=== PATIENT | male | born 1935 | race Caucasian/White ===

== ENCOUNTER 2017-10-12 23:29 | Emergency (ER) | payer MEDICARE, OTHER ==
[~2017-10-12] VITALS: Ht 185.4 cm; Wt 105.7 kg
[2017-10-12 23:33] VITALS: TEMP 36.4; Ht 185.4 cm; Wt 105.7 kg
[2017-10-12] MEDS ORDERED: LIDOCAINE 4% W/AFRIN NASAL SOLN 4ML EXT STA (23:46)
--- NOTE | 2017-10-12 23:54 | EMERGENCY ROOM VISIT NOTE ---
History Report prepared by Bal: Mojgan Colon Under the Supervision of: Dr. Michael Ospina M.D. First contact with patient: 23:36 Chief Complaint: NOSE BLEED (MINOR) Stated Complaint: NOSE BLEED History of Present Illness The patient is a 81 year old male who presents to the Emergency Room with complaints of a persistent nose bleed that started 12 hours ago. The patient was seen at [place] [facility] for the nose bleed and had a rhino rocket put in but states the bleeding has not stopped. The physician told the patient to come to [facility] because he needs to see an ENT doctor. The patient states the blood is dripping into his throat. He was not put on antibiotics and he did not have labs drawn in [place]. The patient has been on Eliquis for 3 weeks for an irregular heart beat. He reports he was put on a fluid pill due to his ankles being swollen. He denies urinary symptoms or melena. Source of History: patient Onset: 12 hours ago Position: nose Quality: other (bleeding) Timing: other (persistent) Associated Symptoms: No melena, No urinary symptoms Review of Systems See HPI for pertinent positives & negatives. A total of 10 systems reviewed and were otherwise negative. Past Medical & Surgical Medical Problems: (1) Hypertension Family History Hypertension Social History Smoking Status: Former Smoker Current/Historical Medications Scheduled Apixaban (Eliquis), Unknown Dose PO BID Aspirin (Aspirin Ec), 81 MG PO DAILY Cephalexin Monohydrate (Keflex), 500 MG PO TID Esomeprazole Magnesium (Nexium), Unknown Dose PO DAILY Furosemide (Lasix), Unknown Dose PO DAILY Losartan Potassium (Cozaar), 25 MG PO BID [cholesterol med], 1 DOSE PO QPM Allergies Coded Allergies: No Known Allergies (Verified , 10/13/17) Physical Exam Vital Signs Date Time Temp Pulse Resp B/P (MAP) Pulse Ox O2 Delivery O2 Flow Rate FiO2 10/13/17 01:33 69 18 149/90 93 10/12/17 23:33 36.4 86 18 160/104 99 Room Air Physical Exam GENERAL: Patient is chronically unwell appearing and in no acute distress. EYES: No scleral icterus, unremarkable pupils. ENT: Mucous membranes moist, no nasal congestion. Rhino rocket in right nares. Blood in posterior pharynx. NECK: No masses appreciated, no meningismus, trachea is midline. RESPIRATORY: No dyspnea. Clear to auscultation and equal bilaterally. No wheeze , no rhonchi. CARDIOVASCULAR: Regular rate and rhythm. No murmurs, rubs, gallops appreciated. GASTROINTESTINAL: Abdomen soft, nontender, no peritonitis. Bowel sounds positive. No masses appreciated. BACK: No midline tenderness, no CVA tenderness EXTREMITIES: Normal motion all extremities, no cyanosis, no edema. NEUROLOGIC: Alert and oriented, no acute motor or sensory deficits, no focal weakness, cranial nerves grossly intact. SKIN: No rash, no jaundice, no diaphoresis. Medical Decision & Procedures Laboratory Results 10/12/17 23:55 Red Blood Count 4.44, Mean Corpuscular Volume 97.1, Mean Corpuscular Hemoglobin 33.1, Mean Corpuscular Hemoglobin Concent 34.1, Mean Platelet Volume 10.2, Neutrophils (%) (Auto) 65.1, Lymphocytes (%) (Auto) 23.3, Monocytes (%) (Auto) 8.5, Eosinophils (%) (Auto) 2.6, Basophils (%) (Auto) 0.2, Neutrophils # (Auto) 5.84, Lymphocytes # (Auto) 2.09, Monocytes # (Auto) 0.76, Eosinophils # (Auto) 0.23, Basophils # (Auto) 0.02 10/12/17 23:55 Test 10/12/17 23:55 White Blood Count 8.97 K/uL (4.8-10.8) Red Blood Count 4.44 M/uL (4.7-6.1) Hemoglobin 14.7 g/dL (14.0-18.0) Hematocrit 43.1 % (42-52) Mean Corpuscular Volume 97.1 fL (80-100) Mean Corpuscular Hemoglobin 33.1 pg (25-34) Mean Corpuscular Hemoglobin Concent 34.1 g/dl (32-36) Platelet Count 192 K/uL (130-400) Mean Platelet Volume 10.2 fL (7.4-10.4) Neutrophils (%) (Auto) 65.1 % Lymphocytes (%) (Auto) 23.3 % Monocytes (%) (Auto) 8.5 % Eosinophils (%) (Auto) 2.6 % Basophils (%) (Auto) 0.2 % Neutrophils # (Auto) 5.84 K/uL (1.4-6.5) Lymphocytes # (Auto) 2.09 K/uL (1.2-3.4) Monocytes # (Auto) 0.76 K/uL (0.11-0.59) Eosinophils # (Auto) 0.23 K/uL (0-0.5) Basophils # (Auto) 0.02 K/uL (0-0.2) RDW Standard Deviation 51.8 fL (36.4-46.3) RDW Coefficient of Variation 14.5 % (11.5-14.5) Immature Granulocyte % (Auto) 0.3 % Immature Granulocyte # (Auto) 0.03 K/uL (0.00-0.02) Prothrombin Time 10.1 SECONDS (9.0-12.0) Prothromb Time International Ratio 1.0 (0.9-1.1) Activated Partial Thromboplast Time 24.7 SECONDS (21.0-31.0) Partial Thromboplastin Ratio 1.0 Anion Gap 6.0 mmol/L (3-11) Est Creatinine Clear Calc Drug Dose 51.0 ml/min Estimated GFR () 50.6 Estimated GFR (Non- 43.7 BUN/Creatinine Ratio 14.1 (10-20) Calcium Level 9.2 mg/dl (8.5-10.1) Total Bilirubin 0.3 mg/dl (0.2-1) Aspartate Amino Transf (AST/SGOT) 21 U/L (15-37) Alanine Aminotransferase (ALT/SGPT) 22 U/L (12-78) Alkaline Phosphatase 77 U/L (45-117) Total Protein 7.9 gm/dl (6.4-8.2) Albumin 3.9 gm/dl (3.4-5.0) Globulin 4.0 gm/dl (2.5-4.0) Albumin/Globulin Ratio 1.0 (0.9-2) Laboratory results as reviewed by me. Medications Administered Medications (Trade) Dose Ordered Sig/Obed Route Start Time Stop Time Status Last Admin Dose Admin Cephalexin Monohydrate (Keflex Cap) 500 mg NOW ONCE PO 10/13/17 01:15 10/13/17 01:16 DC 10/13/17 01:14 500 MG ED Course 2340: The patient was evaluated in room C8. A complete history and physical exam was performed. 0005: The patient is stable at this time. 0100: I rechecked the patient. He has no further bleeding and I removed some air from the balloon. 0115: I rechecked the patient. He has no further bleeding and would like to go home. He will follow up with his PCP in 48 hours. I advised he follow up with ENT if he has any further issues. 0120: Reevaluated the patient. Discussed results and discharge instructions: He verbalized understanding and agreement. The patient is ready for discharge. Medical Decision Differential diagnosis: Etiologies such as anterior epistaxis, coagulopathy, traumatic injury, fracture , septal hematoma, posterior epistaxis as well as other pathologies were entertained. 81 male arrives for evaluation of right anterior epistaxis. On Eliquis. No trauma. Had rapid rhino placed at OSH and told to come here if continued bleeding. 4.5 cm rhino is only about half in the nose. This was removed and 5.5 cm Rapid rhino placed after afrin/lidocaine/hemostarch to right nares. No further bleeding over next hour. Labs unremarkable. Patient comfortable and stable. They want to go home. This seems reasonable. Discharged to home aware RTED at any time if worsening. Packing instructions reviewed with patient. Medication Reconcilliation Current Medication List: was personally reviewed by me Blood Pressure Screening Patient's blood pressure: Elevated blood pressure Blood pressure disposition: Referred to PCP Impression Primary Impression: Right-sided epistaxis Scribe Attestation The scribe's documentation has been prepared under my direction and personally reviewed by me in its entirety. I confirm that the note above accurately reflects all work, treatment, procedures, and medical decision making performed by me. Departure Information Dispostion Home / Self-Care Prescriptions Cephalexin Monohydrate (Keflex) 500 Mg Cap 500 MG PO TID for 7 Days, #21 CAP Prov: Michael Ospina M.D. 10/13/17 Referrals Keagan Mendoza M.D. (PCP) Gurpreet Darnell D.O. Patient Instructions ED Nasal Packing Anterior Removable, [facility] Additional Instructions Stop taking your Eliquis until you discuss this with your primary care provider. Return if heavy bleeding, fevers, severe pain or other concerns. We are always here to help.
[2017-10-13 00:07] LABS: BASO % 0.2 %; BASO ABS # 0.02 K/uL (0-0.2); EOS % 2.6 %; EOS ABS # 0.23 K/uL (0-0.5); HEMATOCRIT 43.1 % (42-52); HEMOGLOBIN 14.7 g/dL (14.0-18.0); IG# 0.03 K/uL (0.00-0.02); LYMPH % 23.3 %; LYMPH ABS # 2.09 K/uL (1.2-3.4); MEAN CELL VOLUME 97.1 fL (80-100); MEAN CORPUSCULAR HEMOGLOBIN 33.1 pg (25-34); MEAN CORPUSCULAR HGB CONC 34.1 g/dl (32-36); MEAN PLATELET VOLUME 10.2 fL (7.4-10.4); MONO % 8.5 %; MONO ABS # 0.76 K/uL (0.11-0.59); NEUT % 65.1 %; NEUT ABS # 5.84 K/uL (1.4-6.5); PLATELET COUNT 192 K/uL (130-400); RED CELL DISTRIBUTION WIDTH CV 14.5 % (11.5-14.5); RED CELL DISTRIBUTION WIDTH SD 51.8 fL (36.4-46.3); WHITE BLOOD COUNT 8.97 K/uL (4.8-10.8)
[2017-10-13] MEDS ORDERED: APIX1TAB PO (00:14)
[2017-10-13] MEDS ORDERED: LOSA1TAB PO (00:15)
[2017-10-13] MEDS ORDERED: FURO-85 PO (00:16)
[2017-10-13] MEDS ORDERED: ASPI81TA28 PO (00:16)
[2017-10-13 00:17] LABS: PTT PATIENT 24.7 SECONDS (21.0-31.0)
[2017-10-13] MEDS ORDERED: ESOM20CA PO (00:17)
[2017-10-13] MEDS ORDERED: cholesterol med PO (00:18)
[2017-10-13 00:26] LABS: ALBUMIN 3.9 gm/dl (3.4-5.0); CALCIUM 9.2 mg/dl (8.5-10.1); CREATININE 1.5 mg/dl (0.60-1.40); POTASSIUM 3.9 mmol/L (3.5-5.1); TOTAL PROTEIN 7.9 gm/dl (6.4-8.2)
[2017-10-13] MEDS ORDERED: CEPHALEXIN MONOHYDRATE 250 MG CAP PO ONE (01:15)
[2017-10-13] MEDS ORDERED: CEPH500C PO (01:18)
[2017-10-13 01:33] VITALS: BP 149/90; PULSE 69; O2SAT 93
== END 2017-10-13 01:33 | disposition home or self-care (01) ==
LOC: C.EDB 23:30 → C.EDC 10-13 01:33
DX: R04.0 Epistaxis (principal); I10 Essential (primary) hypertension; Z79.01 Long term (current) use of anticoagulants; Z79.82 Long term (current) use of aspirin; Z87.891 Personal history of nicotine dependence